=== PATIENT | male | born 1950 | race Caucasian/White ===

== ENCOUNTER → 2016-10-20 | Outpatient (CLI) | payer OTHER ==
--- NOTE | 2016-10-20 12:48 | REP ---
RIGHT FINGERS, FOUR VIEWS: HISTORY: Contusion. There is no acute fracture. There is narrowing of the 1st carpal metacarpal, and metacarpophalangeal joint spaces. An osteophyte is present on the base of the 1st metacarpal. There is very minimal medial subluxation of the proximal phalange of the 1st proximal phalange with respect to the 1st metacarpal. IMPRESSION: Degenerative changes as described above. Signed by Jose Mcgowan MD 10/20/2016 12:50 P
== END ==
LOC: M WUC 12:11
PROVIDERS: ATTEND Physician Assistant
DX: M19.041 Primary osteoarthritis, right hand (principal)

== ENCOUNTER → 2018-02-04 | Outpatient (CLI) | payer OTHER ==
[2018-02-04 21:24] LABS: BASO # 0.2 10^3/uL (0.0-0.2); BASO % 1.4 % (0.0-1.0); EOS # 0.4 10^3/uL (0.0-0.50); EOS % 3.8 % (0.0-3.0); HEMATOCRIT 40.8 % (42.0-52.0); HEMOGLOBIN 13.3 g/dl (13.5-17.5); IMMATURE GRANULOCYTE % 0.3 % (0-3.0); LYMPH # 4.1 10^3/uL (1.5-4.5); LYMPH % 38.9 % (24.0-44.0); MEAN CORPUSCULAR HEMOGLOBIN 29.2 pg (27.0-33.0); MEAN CORPUSCULAR HGB CONC 32.6 g/dl (32.0-36.5); MEAN CORPUSCULAR VOLUME 89.7 fl (80.0-96.0); MONO # 0.6 10^3/uL (0.0-0.8); NEUTROPHILS # 5.3 10^3/uL (1.8-7.7); NEUTROPHILS % 49.6 % (36.0-66.0); PLATELET COUNT, AUTOMATED 325 10^3/uL (150-450); RED BLOOD COUNT 4.55 10^6/uL (4.30-6.10); RED CELL DISTRIBUTION WIDTH 13.3 % (11.5-14.5); WHITE BLOOD COUNT 10.6 10^3/uL (4.0-10.0)
[2018-02-04 21:44] LABS: ALBUMIN 3.6 GM/DL (3.2-5.2); ALBUMIN/GLOBULIN RATIO 1.24 (1.00-1.93); ALKALINE PHOSPHATASE 94 U/L (45-117); ALT/SGPT 33 U/L (12-78); ANION GAP 7 MEQ/L (8-16); AST/SGOT 22 U/L (7-37); BILIRUBIN,TOTAL 0.4 MG/DL (0.2-1.0); BLOOD UREA NITROGEN 14 MG/DL (7-18); CALCIUM LEVEL 8.7 MG/DL (8.8-10.2); CARBON DIOXIDE LEVEL 29 MEQ/L (21-32); CHLORIDE LEVEL 105 MEQ/L (98-107); CREATININE FOR GFR 1.14 MG/DL (0.70-1.30); GLOMERULAR FILTRATION RATE > 60.0 (>49); GLUCOSE, FASTING 92 MG/DL (70-100); POTASSIUM SERUM 4.5 MEQ/L (3.5-5.1); SODIUM LEVEL 141 MEQ/L (136-145); TOTAL PROTEIN 6.5 GM/DL (6.4-8.2)
== END ==
LOC: M WUC 15:37
DX: R10.11 Right upper quadrant pain (principal)
CPT/HCPCS: 80053

== ENCOUNTER → 2018-02-06 | Outpatient (CLI) | payer OTHER | LOC: M RAD 14:48 | DX: R10.11 Right upper quadrant pain (principal) ==

== ENCOUNTER → 2021-03-15 | Outpatient (REF) | payer MEDICARE, OTHER | LOC: M WUC 11:30 | PROVIDERS: ATTEND Nurse Practitioner Family | DX: R30.0 Dysuria (principal) ==

== ENCOUNTER 2021-06-24 22:22 | Emergency (ER) | payer MEDICARE, OTHER ==
[~2021-06-24] VITALS: Ht 165.1 cm; Wt 68.2 kg
[2021-06-25] MEDS ORDERED: MORPHINE 4 MG/ML 1ML VIAL/SYRINGE (J2270) IV ONE (00:15)
[2021-06-25] MEDS ORDERED: ONDANSETRON 4MG/2ML VIAL IV ONE (00:15)
[2021-06-25] MEDS ORDERED: ACETAMINOPHEN 500 MG TAB PO ONE (00:15)
[2021-06-25] MEDS ORDERED: NS 2,050 ML in IV 1 EA IV ONE (00:15)
[2021-06-25 00:28] LABS: BASO % 0.4 % (0.0-1.0); EOS % 0.3 % (0.0-3.0); HEMATOCRIT 38.1 % (42.0-52.0); HEMOGLOBIN 13.2 g/dl (13.5-17.5); LYMPH # 1.2 10^3/uL (1.5-5.0); LYMPH % 15.1 % (24.0-44.0); MEAN CORPUSCULAR HEMOGLOBIN 29.7 pg (27.0-33.0); MEAN CORPUSCULAR HGB CONC 34.6 g/dl (32.0-36.5); MEAN CORPUSCULAR VOLUME 85.8 fl (80.0-96.0); MONO # 0.5 10^3/uL (0.0-0.8); MONO % 5.7 % (2.0-8.0); NEUTROPHILS # 6.2 10^3/uL (1.5-8.5); NEUTROPHILS % 78.2 % (36.0-66.0); PLATELET COUNT, AUTOMATED 214 10^3/uL (150-450); RED BLOOD COUNT 4.44 10^6/uL (4.30-6.10)
[2021-06-25 00:44] LABS: ERYTHROCYTE SEDIMENTATION RATE 8 mm/hr (0-20)
[2021-06-25] MEDS ORDERED: ISOVUE-370 76% 100ML VIAL As Ordered ONE (00:56)
[2021-06-25 00:57] LABS: ALBUMIN 3.3 GM/DL (3.2-5.2); BILIRUBIN,DIRECT 0.2 MG/DL (0.0-0.2); C REACTIVE PROTEIN QUANTITATIV 1.65 MG/DL (0.00-0.30); TOTAL PROTEIN 5.9 GM/DL (6.4-8.2)
[2021-06-25 01:05] VITALS: BP 123/65
[2021-06-25 01:12] LABS: RSV AMPLIFICATION NEGATIVE (NEGATIVE)
[2021-06-25] MEDS ORDERED: LEVS0.124 SL (03:11)
== END 2021-06-25 03:30 | disposition home or self-care (01) ==
LOC: M ED 22:22
DX: K80.50 Calculus of bile duct without cholangitis or cholecystitis without obstruction (principal); R50.9 Fever, unspecified; K76.89 Other specified diseases of liver; K40.20 Bilateral inguinal hernia, without obstruction or gangrene, not specified as recurrent; J98.11 Atelectasis
CPT/HCPCS: 71045; 74177; 80047; 80076; 81001; 83605; 83690; 85025; 85652; 86140; 87040; 87631; 96361; 96374; 96375; 99284; J2270; J2405; Q9967

== ENCOUNTER → 2021-07-20 | Outpatient (CLI) | payer MEDICARE, OTHER ==
[~2021-07-20] MED LIST: LEVS0.124 SL
== END ==
LOC: M WHC 07:00
PROVIDERS: ATTEND Internal Medicine Gastroenterology
DX: R10.11 Right upper quadrant pain (principal)

== ENCOUNTER 2023-04-03 12:23 | Emergency (ER) | payer MEDICARE, OTHER ==
[~2023-04-03] VITALS: Ht 170.2 cm; Wt 67.3 kg
[2023-04-03] MEDS ORDERED: FAMO20TA5 (12:31)
[2023-04-03] MEDS ORDERED: TAMS1CAP17 (12:31)
[2023-04-03] MEDS ORDERED: AMIO200T49 (12:31)
[2023-04-03] MEDS ORDERED: LIOT5TAB6 (12:31)
[2023-04-03] MEDS ORDERED: FURO20TA2 (12:31)
[2023-04-03] MEDS ORDERED: METO1TAB32 (12:31)
[2023-04-03] MEDS ORDERED: OXYC-517 (12:31)
[2023-04-03] MEDS ORDERED: ROSU20TA61 (12:31)
[2023-04-03] MEDS ORDERED: LISI2.5T9 (12:31)
[2023-04-03] MEDS ORDERED: LEVO125T4 (12:31)
[2023-04-03] MEDS ORDERED: ELIQ5TAB (12:31)
[2023-04-03] MEDS ORDERED: MILKSUS3 PO (12:32)
[2023-04-03] MEDS ORDERED: DULC5TAB PO (12:32)
[2023-04-03] MEDS ORDERED: MIRA3350 PO (12:32)
[2023-04-03] MEDS ORDERED: FLEEENE12 PR (12:33)
[2023-04-03 13:46] LABS: BASO # 0.1 10^3/uL (0.0-0.2); EOS # 0.3 10^3/uL (0.0-0.5); EOS % 2.6 % (0.0-3.0); HEMATOCRIT 37.9 % (42.0-52.0); HEMOGLOBIN 12.6 g/dl (13.5-17.5); LYMPH # 3.6 10^3/uL (1.5-5.0); MEAN CORPUSCULAR HEMOGLOBIN 30.1 pg (27.0-33.0); MEAN CORPUSCULAR HGB CONC 33.2 g/dl (32.0-36.5); MEAN CORPUSCULAR VOLUME 90.7 fl (80.0-96.0); MONO # 0.6 10^3/uL (0.0-0.8); MONO % 5.4 % (2.0-8.0); NEUTROPHILS # 7.2 10^3/uL (1.5-8.5); NEUTROPHILS % 60.6 % (36.0-66.0); PLATELET COUNT, AUTOMATED 644 10^3/uL (150-450); RED BLOOD COUNT 4.18 10^6/uL (4.30-6.10); WHITE BLOOD COUNT 11.9 10^3/uL (4.0-10.0)
[2023-04-03 13:47] LABS: ALBUMIN 3.5 G/DL (3.2-5.2); BILIRUBIN,DIRECT 0.3 MG/DL (<0.4); BILIRUBIN,TOTAL 0.8 MG/DL (0.3-1.2); TOTAL PROTEIN 6.3 G/DL (5.7-8.2)
[2023-04-03] MEDS ORDERED: ISOVUE-370 76% 100ML VIAL As Ordered ONE (14:42)
[2023-04-03] MEDS ORDERED: GLYCERIN ADULT SUPP PR ONE (15:50)
[2023-04-03] MEDS ORDERED: CVS2.1SU PR (16:02)
[2023-04-03 16:15] VITALS: BP 105/63; TEMP 97; O2SAT 96
== END 2023-04-03 16:17 | disposition home or self-care (01) ==
LOC: M ED 12:33
DX: K59.00 Constipation, unspecified (principal); R10.84 Generalized abdominal pain; I48.91 Unspecified atrial fibrillation; I11.9 Hypertensive heart disease without heart failure; E06.3 Autoimmune thyroiditis; Z95.1 Presence of aortocoronary bypass graft; Z79.899 Other long term (current) drug therapy; Z79.01 Long term (current) use of anticoagulants
CPT/HCPCS: 36415; 74018; 74177; 80047; 80076; 83690; 85025; 99284; Q9967

== ENCOUNTER → 2023-12-07 | Outpatient (REF) | payer MEDICARE, OTHER ==
[~2023-12-07] MED LIST changes: +AMIO200T49; +DULC5TAB PO; +ELIQ5TAB; +FAMO20TA5; +FLEEENE12 PR; +FURO20TA2; +GLYC1SUP38 PR; +LEVO125T4; +LIOT5TAB6; +LISI2.5T9; +METO1TAB32; +MILKSUS3 PO; +MIRA3350 PO; +OXYC-517; +ROSU20TA61; +TAMS1CAP17
== END ==
LOC: M LAB REF 12:15
PROVIDERS: ATTEND Nurse Practitioner Family
DX: R30.0 Dysuria (principal)

== ENCOUNTER → 2024-01-20 | Outpatient (REF) | payer MEDICARE, OTHER ==
[~2024-01-20] MED LIST changes: -ROSU20TA61; +ROSU20TA86
== END ==
LOC: M LAB REF 17:11
PROVIDERS: ATTEND Registered Nurse
DX: N39.0 Urinary tract infection, site not specified (principal)

== ENCOUNTER → 2024-01-25 | Outpatient (REF) | payer MEDICARE, OTHER | LOC: M WUC 19:45 | PROVIDERS: ATTEND Nurse Practitioner Family | DX: R30.0 Dysuria (principal) ==

== ENCOUNTER → 2024-02-22 | Outpatient (REF) | payer MEDICARE, OTHER ==
[2024-02-22 11:50] LABS: APPEARANCE, URINE HAZY (CLEAR); BACTERIA, URINE AUTO NEGATIVE (NEGATIVE); BILIRUBIN, URINE AUTO NEGATIVE (NEGATIVE); BLOOD, URINE BLOOD NEGATIVE (NEGATIVE); COLOR, URINE YELLOW (YELLOW); GLUCOSE, URINE (UA) AUTO NEGATIVE (NEGATIVE); KETONE, URINE AUTO NEGATIVE (NEGATIVE); LEUKOCYTE ESTERASE, URINE AUTO NEGATIVE (NEGATIVE); NITRITE, URINE AUTO NEGATIVE (NEGATIVE); PROTEIN, URINE AUTO NEGATIVE (NEGATIVE); RBC, URINE AUTO 0 /HPF (0-3); SPECIFIC GRAVITY URINE AUTO 1.026 (1.002-1.035); SQUAMOUS EPITHELIAL CELL UR AU 0 /HPF (0-6); UROBILINOGEN, URINE AUTO 0.2 mg/dL (0.0-2.0); WBC, URINE AUTO 0 /HPF (0-3)
== END ==
LOC: M SMT 10:18
PROVIDERS: ATTEND Nurse Practitioner Family
DX: N39.0 Urinary tract infection, site not specified (principal)

== ENCOUNTER → 2024-05-15 | Outpatient (REF) | payer MEDICARE, OTHER ==
[2024-05-15 17:46] LABS: HEMATOCRIT 43.2 % (42.0-52.0); HEMOGLOBIN 14.4 g/dl (13.5-17.5); MEAN CORPUSCULAR HEMOGLOBIN 30.3 pg (27.0-33.0); MEAN CORPUSCULAR HGB CONC 33.3 g/dl (32.0-36.5); MEAN CORPUSCULAR VOLUME 90.9 fl (80.0-96.0); PLATELET COUNT, AUTOMATED 246 10^3/uL (150-450); RED BLOOD COUNT 4.75 10^6/uL (4.30-6.10); WHITE BLOOD COUNT 9.2 10^3/uL (4.0-10.0)
[2024-05-15 18:10] LABS: BASO # 0.1 10^3/uL (0.0-0.2); BASO % 0.8 % (0.0-1.0); EOS # 0.3 10^3/uL (0.0-0.5); EOS % 2.7 % (0.0-3.0); LYMPH # 4.8 10^3/uL (1.5-5.0); LYMPH % 51.9 % (24.0-44.0); MONO # 0.7 10^3/uL (0.0-0.8); MONO % 7.5 % (2.0-8.0); NEUTROPHILS # 3.4 10^3/uL (1.5-8.5); NEUTROPHILS % 36.9 % (36.0-66.0)
[2024-05-15 19:58] LABS: ATYPICAL LYMPH 13 % (0-5); BASOPHILS 1 % (0-1); LYMPHOCYTES 49 % (16-44); NEUTROPHILS 37 % (28-66)
[2024-05-15 19:59] LABS: SMUDGE CELLS 1+
[2024-05-15 20:02] LABS: PLATELET ESTIMATE NORMAL (NORMAL)
[2024-05-15 20:06] LABS: SOURCE PERIPHERAL SMEAR
== END ==
LOC: M LAB REF 17:38
PROVIDERS: ATTEND Internal Medicine
DX: D72.9 Disorder of white blood cells, unspecified (principal)

== ENCOUNTER → 2024-05-26 | Outpatient (REF) | payer MEDICARE, OTHER | LOC: M LAB REF 11:49 | PROVIDERS: ATTEND Internal Medicine | DX: D72.9 Disorder of white blood cells, unspecified (principal) ==

== ENCOUNTER → 2024-06-18 | Outpatient (CLI) | payer MEDICARE, OTHER | LOC: M RAD 13:11 | PROVIDERS: ATTEND Nurse Practitioner Family | DX: R10.9 Unspecified abdominal pain (principal) ==

== ENCOUNTER → 2024-11-26 | Outpatient (CLI) | payer MEDICARE, OTHER ==
[~2024-11-26] MED LIST changes: -AMIO200T49; +AMIO200T54; +GASTROGRAFIN SOLUTION 30 ML ONE; +ISOVUE-370 76% 100 ML VIAL ONE
== END ==
LOC: M PLAIMG 09:00
PROVIDERS: ATTEND Internal Medicine
DX: K40.20 Bilateral inguinal hernia, without obstruction or gangrene, not specified as recurrent (principal); R93.2 Abnormal findings on diagnostic imaging of liver and biliary tract
CPT/HCPCS: 74177; Q9963; Q9967

== ENCOUNTER → 2025-02-19 | Outpatient (CLI) | payer MEDICARE, OTHER ==
[~2025-02-19] MED LIST changes: -GASTROGRAFIN SOLUTION 30 ML ONE; -ISOVUE-370 76% 100 ML VIAL ONE
== END ==
LOC: M PLAIMG 14:27
PROVIDERS: ATTEND Nurse Practitioner Family
DX: I25.10 Atherosclerotic heart disease of native coronary artery without angina pectoris (principal)